=== PATIENT | female | born 1950 | race Caucasian/White ===

== ENCOUNTER 2023-09-20 11:47 | Emergency (ER) | payer MEDICARE, OTHER, SELFPAY ==
[2023-09-20 11:51] VITALS: BP 171/95
[2023-09-20 11:52] VITALS: BMI 22.7
[2023-09-20 11:57] VITALS: BP 171/95
[2023-09-20 12:00] VITALS: BP 182/85
--- NOTE | 2023-09-20 12:07 | ED.CVA ---
History of Present Illness
General
Chief Complaint: CVA/TIA Symptoms
Source: patient and ambulance crew
Exam Limitations: none
Time Seen by Provider: 09/20/23 11:50
Nursing documentation reviewed up to this point in time: agreed with
Onset of Stroke Symptoms
Onset of symptoms known: Yes
Date of onset of symptoms: 09/20/23
Time of onset of symptoms: 08:30
Travel History
Have you had any contact with someone who has COVID-19?: No
Do you have any symptoms of coronavirus? Fever > 100 degrees, chills, cough, shortness of breath, sore throat, loss of taste or smell, muscle aches, or headache?: No
History of Present Illness
History of Present Illness:
72-year-old female presents emerged part complaining of left-sided weakness, unsteadiness causing her to fall onto her back. Friend noted slurred speech hypertensive prior to arrival. She has a posterior brain stent.
Past History
Past History
ED Past Medical History: HTN and Other (Brain aneurysm)
ED Past Surgical History: Brain (Posterior stent)
Social History
Tobacco: Non-smoker
Alcohol: None
Drug: None
Review of Systems
Review of Systems
Allergies reviewed?: Yes
All Other Systems: Not applicable
Constitutional: Reports no symptoms
EENT: Reports no symptoms
Respiratory: Reports no symptoms
Cardiac: Reports no symptoms
ABD/GI: Reports no symptoms
: Reports no symptoms
Musculoskeletal: Reports no symptoms
Skin: Reports no symptoms
Neurological: Reports dizzy, weakness and other (Slurred speech)
Endocrine: Reports no symptoms
Hematologic/Lymphatic: Reports no symptoms
Psychiatric: Reports no symptoms
Phy Exam
Physical Exam
Physical Exam:
Physical Exam
General: no apparent distress, not acutely ill
Neck: supple. no meningeal signs. normal posterior pharynx
Heart: s1/s2 regular rate and rhythm, no murmur. equal radial
pulses.
HEENT: Pupils equal round reactive to light, EOMI
Lungs: no acute respiratory distress. clear bilaterally
Abdomen: normal bowel sounds. not tender. no CVAT
Neuro: alert and oriented. no focal neurological deficits cranial nerves II through XII intact
Skin: no rash
Psychiatric: well kept. interactive and cooperative
Extremities: no edema. no calf tenderness. negative homans. good distal pulses
Course
Orders/Labs/Results
Orders:
Orders
09/20/23 12:00
CT Head & Neck Angio W/wo IV Urgent
Comment:
Reason For Exam: slurred speech, hx posterior circ aneurysm stent
CT Head W/o Iv Contrast Urgent
Comment:
Reason For Exam: slurred speech
IV Insert/Care/Rem.- Treatment PRN
09/20/23 12:02
Electrocardiogram (*1) Urgent
Reason for Study: TIA/Stroke
EKG- Treatment ONCE
09/20/23 12:17
Complete Blood Count/With Diff Urgent
Comprehensive Metabolic Panel Urgent
09/20/23 13:40
NEUROLOGY CONSULT Urgent
Consulting Provider: Sohan Murcia
Was physician already notified: Yes
Reason for consult: slurred speech
09/20/23 14:07
Ondansetron Injectable [Zofran] 4 mg IV NOW ONE
09/20/23 14:14
Acetaminophen [Tylenol] 650 mg PO NOW STA
Lumbar Spine Complete, 4 View [CR Lumbar Spine Comp Min 4 Vw*] Urgent
Comment:
Reason For Exam: fall, low back pain
Abnormal Lab Results
09/20/23
12:17
MCV 76.0 L fL
(81.0-99.0)
MCH 24.6 L pg
(27.0-31.0)
MCHC 32.4 L g/dL
(33.0-37.0)
RDW 16.1 H %
(11.5-14.5)
Abs Immat Gran (auto) 0.1 H 10^3/uL
(0-0.05)
Absolute Lymphs (auto) 1.1 L 10^3/uL
(1.2-3.4)
Immature Gran % 1.4 H %
(0-0.5)
Neutrophils % 79.5 H %
(42.2-75.2)
Lymphocytes % 13.8 L %
(20.5-51.1)
09/20/23 12:17
09/20/23 12:17
Vital Signs
Initial and Last Documented VS:
Initial Vital Signs
Temp Pulse Resp BP Pulse Ox
97.8 F 71 14 171/95 98
09/20/23 11:57 09/20/23 11:57 09/20/23 11:57 09/20/23 11:57 09/20/23 11:57
Last Documented Vital Signs
Temp Pulse Resp BP Pulse Ox
97.8 F 71 14 171/95 98
09/20/23 11:57 09/20/23 11:57 09/20/23 11:57 09/20/23 11:57 09/20/23 12:22
MDM/Problems Addressed
Differential Diagnosis Includes:
TIA, CVA, intracranial hemorrhage, lumbar fracture
MDM/Problems Addressed:
72-year-old female with fall, no signs of intracranial hemorrhage. Patient is now asymptomatic. Possible TIA. Patient seen by Dr. Murcia, who recommended MRI. Patient declines MRI and will be discharged after lumbar spine x-ray.
Chronic conditions affecting care: Other (Prior stent in aneurysm)
*Radiology
Radiology exam reviewed: radiology read reviewed (CT head and CT angiography no acute findings)
*Pulse Oximetry
Patient hypoxic: no
*EKG
Interpreted by ED Provider?: Yes
EKG Intrepretation Date: 09/20/23
EKG Intrepretation Time: 12:09
Interpretation: normal
Comparison EKG: no comparison EKG present
Heart Rate: 63
Rate: normal
Rhythm: sinus
Otho: normal axis
Interval: normal interval
QRS Pattern: normal QRS
Ischemia: no ischemia
*Tooling Supervisor Interpretation
Rate: normal
Interpretation: normal
Heart Rate: 62
Rhythm: sinus
*Critical Care Note
Total Time (30-74mins, 75-104mins- exclusive of procedures): Not Applicable
Data Reviewed
Further Testing Considered But Not Given:
MRI brain, declined by patient
Patient Management
Discussion with other providers: Gastroenterology Manager (neurology Dr. Murcia)
Escalation/DeEscalation of care consider admission/obs:
admit considered, pt declines
ED Attending Note
-
Portions of this chart may have been created with voice recognition software.� Occasional wrong word or��sound alike� substitutions may have occurred due to the inherent limitations of voice recognition software.
Discharge Plan
Departure
Patient with high blood pressure during this ER visit?: Yes
Condition: Good
Discharge Problem:
TIA (transient ischemic attack)
Prescriptions:
No Action
loperamide [Imodium] 2 mg Capsule
2 mg PO Q6H PRN (Reason: loose stools)
valsartan 320 mg tablet
320 mg PO DAILY
aspirin 81 mg Tablet,Chewable
81 mg PO DAILY
metoprolol succinate 25 mg tablet extended release 24 hr
25 mg PO HS
cholecalciferol (vitamin D3) [Vitamin D3] 125 mcg (5,000 unit) Tablet
125 mcg PO DAILY
Referrals:
Eduardo Pathak DO [Family Provider] -
Interventions
Interventions:
*Risk Screen - Suicide Last Done: 09/20/23 12:03
*General Assessment Last Done: 09/20/23 12:03
*Neglect/Abuse Screening Last Done: 09/20/23 12:03
*ED COVID-19 Vaccine History Last Done: 09/20/23 11:57
ED- Pulmonary Assessment Last Done: 09/20/23 12:22
ED- Neurological Assessment Last Done: 09/20/23 12:22
ED- Cardiac Assessment Last Done: 09/20/23 12:22
[2023-09-20 12:34] LABS: % Basophils 0.7 % (0-2); % Eosinophils 0.3 % (0-6); % Immature Granulocytes 1.4 % (0-0.5); % Lymphocytes 13.8 % (20.5-51.1); % Monocytes 4.3 % (1.7-9.3); % Neutrophils 79.5 % (42.2-75.2); Absolute Basophils 0.1 10^3/uL (0-0.2); Absolute Immature Granulocytes 0.1 10^3/uL (0-0.05); Absolute Lymphocytes 1.1 10^3/uL (1.2-3.4); Absolute Monocytes 0.3 10^3/uL (0.1-0.6); Absolute Neutrophils 6.1 10^3/uL (1.4-6.5); Hematocrit 38.3 % (37.0-47.0); Hemoglobin 12.4 g/dL (12.0-16.0); Mean Corp Hgb Conc. 32.4 g/dL (33.0-37.0); Mean Corpuscular Hgb 24.6 pg (27.0-31.0); Mean Platelet Volume 9.7 fL (7.4-10.4); Nucleated Red Blood Cells % 0 %; Platelet Count 265 10^3/uL (130-400); Red Blood Cell Count 5.04 10^6/uL (4.20-5.40); Red Cell Dist. Width 16.1 % (11.5-14.5); White Blood Cell Count 7.7 10^3/uL (4.8-10.8)
[2023-09-20 12:44] LABS: ALT (SGPT) 23 U/L (0-35); AST (SGOT) 36 U/L (14-36); Albumin 4.4 g/dl (3.5-5.0); Alkaline Phosphatase 100 U/L (38-126); Blood Urea Nitrogen 17 mg/dl (7-17); Calcium 9.6 mg/dl (8.4-10.2); Carbon Dioxide 25 mmol/L (22-30); Chloride 107 mmol/L (98-107); Estimated Creatinine Clearance 50 ml/min; Glucose 98 mg/dl (70-99); Potassium 4.3 mmol/L (3.5-5.1); Sodium 137 mmol/L (135-145); Total Bilirubin 0.8 mg/dl (0.2-1.3); Total Protein 7.7 g/dl (6.3-8.2); eGFR > 60.00
--- NOTE | 2023-09-20 13:32 | CON.NEURO4 ---
Addendum entered and electronically signed by Sohan Murcia MD 09/20/23 15:15:
Studies reviewed.
I have personally examined the patient. I reviewed and agree with the WORKERS COMPENSATION CLAIMS ASSISTANT's Note.
My addenda:
Awake, alert, interactive. No acute distress.
Speech intact.
Follows 2-step requests w/o difficulty. No tremor.
Extra-ocular movements shows significantly reduced right-eye upgaze compared with contralateral side
Facial movements full and symmetric. Hearing intact to normal conversational volume.
Normal UE movements bilaterally.
Neck: full ROM.
Chest: no dyspnea
Heart: no JVD
Ext: (-) Clubbing, (-) Cyanosis, (-) Edema
IMPRESSIONS/RECOMMENDATIONS:
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
check MRI of brain for possible stroke
check CTA head and neck (done)
goal of mild HTN ~ 140/90 for next 24 hours then normotension
check blood work for metabolic etiologies
rehab evaluations
continue ASA, not clear patient would benefit from Clopidogrel addition
Provide Ondansetron for nausea
Lower back pain relief needed
D/W patient
Will continue to follow patient.
Original Note:
Documented by User: Jing Kothari NP 09/20/23 14:41
Consultation - Neurology 4
-
CONSULTING PHYSICIAN: Sohan Murcia MD
REFERRING PHYSICIAN: ER/Dr. Gaffney
DICTATED BY: SACHA Powell
DATE/TIME OF REQUEST: 09/20/23
DATE/TIME OF CONSULTATION: 09/20/23
Reason for Consultation: Left-sided weakness
History of Present Illness:
This is a 72-year-old right-handed female who has presented to the hospital with report of dizziness, ataxia, left-sided weakness, slurred speech, nausea, and a fall with resulting back pain. Patient reports that she woke up around 0700 this
morning and felt slightly dizzy. [place] and she went about her morning routine, but she felt like her left side was weak and she was off-balance walking. She ended up falling to the ground onto her buttocks, hitting
her back on the stove on the way down. A friend came over around 0930 to check on her and noted that her speech sounded slurred, and she called 911. Blood pressure for EMS was 211/87. On arrival in the ER, CT head and CTA neck were obtained and were
negative for any acute abnormalities. She reports that all of her symptoms except for nausea and lower back pain resolved after 2-3 hours. NIHSS is 0. She is not a candidate for TNK/IAT due to resolution of symptoms/NIHSS 0. She denies any
headache, vision changes, swallow difficulty, numbness, neck pain, chest pain, palpitations, and shortness of breath. She notes a one year history of bowel and urinary urgency following a colonoscopy. She rates her lower back pain an 8/10 and
reports that she never has back pain.
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 She had a workup including MRI brain at [facility] that was
unremarkable. 1-2 weeks after her symptoms developed she developed a severe headache. Evaluation by a neuro-certified vehicle fire investigator including CTA demonstrated a brain hemorrhage and ruptured R VARIOUS EXCEPTIONALITIES TEACHER aneurysm. She had the aneurysm coiled in 2007 and again in
2017 when it was noted to be larger in size. In 2021, she reports the aneurysm was noted to be leaking and she underwent flow diversion stenting. Repeat angiogram in 05/2023 was stable per the patient. She had been on DAPT with aspirin and Plavix,
Plavix was discontinued in May 2023 and she is currently only on aspirin 81mg daily. She is followed by Neurosurgery at [facility] currently. She has residual limited upgaze with EOMs in the right eye only since 2007. She reports that her blood
pressure is typically high when she is in the hospital but at home it usually runs around 140's/80's.
Past Medical History: HTN, Lyme disease, severe scoliosis, psoriasis, basal cell carcinoma
Surgical History: R VARIOUS EXCEPTIONALITIES TEACHER aneurysm coil x2, stenting x1
Family History: Reviewed and noncontributory.
Social History: Denies tobacco, alcohol, and illicit drug use.
Allergies: Povidone-iodine.
Home Medications: See below.
Review of Symptoms:
Patient denies any fever, headache, chest pain, shortness of breath.
�Per the HPI.�All systems are reviewed negative except above.
Physical Exam:
The patient is afebrile, abdomen is nondistended, breathing is unlabored, skin is warm and dry, no edema. Psoriasis noted on left hand.
NIH Stroke Scale:
I performed the NIH stroke scale on the patient on 09/20/23 at 1345. The patient scored 0 points on the NIH stroke scale assessment, which were assigned as follows: See below.
Neurologic Examination:
The patient is awake, alert and oriented x 3. Next holiday , most recent holiday . She is able to follow commands and answer questions appropriately. There is no aphasia or dysarthria. On cranial nerve assessment, right pupil is 3.5
mm, left pupil is 3mm round and reactive to light and accommodation. Visual parsons are full. Extraocular movements are full in the left eye, limited in right eye with upward gaze. +Micronystagmus beating to the right. Facial sensations are intact
and bilaterally symmetrical, there is no facial asymmetry. Hearing is intact bilaterally to normal conversation volume. Tongue palate and uvula are midline. Sternocleidomastoid strengths are full bilaterally. Motor strengths are 5/5 bilateral upper
and lower extremities on medical research [place] scale. There is no drift or involuntary movement noted. Deep tendon reflexes are 2+ right upper and lower and 1+ left upper and lower extremities and Babinski is absent bilaterally. Sensations of
touch, temperature and vibration are intact and bilaterally symmetrical. There was no extinction noted on double simultaneous stimulation. Coordination is intact by finger to nose bilaterally.
Lab Results: See below.
Neuro Imaging:
1. CT Head 09/20/23: No acute intracranial abnormality noted. Chronic senescent changes.
2. CTA head/neck 09/20/23: No significant vascular occlusion, aneurysm or dissection within the limitations as described.
Differentials for the patient's presentation include:
1. Small ischemic stroke or TIA possibly producing transient symptoms.
2. Hypertensive encephalopathy possible
3. CTA head/neck negative for any acute abnormalities.
Patient has the following risk factors for their symptoms: Aneurysm, HTN
IV Tenecteplase/IAT candidacy: She is not a candidate for TNK/IAT due to resolution of symptoms/NIHSS 0.
Recommendations:
-Provide ondansetron 8mg IV x1 now for nausea.
-Continue aspirin 81mg daily.
-Goal normotension.
-MRI brain noncontrast ordered/pending.
-Back pain workup per ER.
-NIHSS and neurological checks per unit guidelines.
-Provide patient with a stroke education packet.
-LDL goal <70. Lipid panel pending.
-Goal normoglycemia, hbA1c pending.
-Checking blood work for metabolic abnormalities.
-PT/OT/ST evaluations.
-DVT prophylaxis.
-Will follow pending results.
Discussed patient care with: Dr. Murcia, the patient
NIH Stroke Score
Subsequent NIH Scale
Date of Subsequent NIH Scale: 09/20/23
Time of Subsequent NIH Scale: 13:45
NIH Stroke Score
Level of Consciousness: 0 - Alert
LOC Questions: 0-Answers both correctly
LOC Commands: 0-Performs both correctly
Best Horizontal Gaze: 0-Normal
Visual Parsons: 0=Normal, no visual loss
Facial Palsy: 0=Normal, symmetrical
Motor - Right Arm: 0=No drift 10 seconds
Motor - Left Arm: 0=No drift 10 seconds
Motor - Right Le-No drift 5 seconds
Motor - Left Le-No drift 5 seconds
Limb Ataxia: 0-Absent
Sensation: 0-Normal
Best Language: 0-No aphasia
Dysarthria: 0-Normal
Extinction and Inattention: 0-No abnormality
Total Score:: 0
Vital Signs and Labs
-
Vital Signs and Labs:
Vital Signs
Temp Pulse Resp BP Pulse Ox
97.8 F 71 14 171/95 98
09/20/23 11:57 09/20/23 11:57 09/20/23 11:57 09/20/23 11:57 09/20/23 12:22
Lab Results
09/20/23 12:17
09/20/23 12:17
Sodium 137 mmol/L (135-145) 09/20/23 12:17
Potassium 4.3 mmol/L (3.5-5.1) 09/20/23 12:17
BUN 17 mg/dl (7-17) 09/20/23 12:17
Glucose 98 mg/dl (70-99) 09/20/23 12:17
Calcium 9.6 mg/dl (8.4-10.2) 09/20/23 12:17
Medications
-
Home Medications
Medication Instructions Recorded
aspirin 81 mg chewable tablet 81 mg PO DAILY Blood Clot 09/20/23
Prevention/Tx
cholecalciferol (vitamin D3) 125 125 mcg PO DAILY Supplement 09/20/23
mcg (5,000 unit) tablet (Vitamin
D3)
loperamide 2 mg capsule 2 mg PO Q6H PRN loose stools 09/20/23
metoprolol succinate 25 mg 25 mg PO HS Blood Pressure 09/20/23
tablet,extended release 24 hr
valsartan 320 mg tablet 320 mg PO DAILY Blood Pressure 09/20/23

Documented by User: Sohan Murcia MD 09/20/23 15:02
NIH Stroke Score
NIH Stroke Score
Total Score:: 0
[2023-09-20 13:56] VITALS: BP 177/92
[2023-09-20 14:30] VITALS: BP 187/91
[2023-09-20] MEDS: TYLENOL 650 MG PO (14:41)
[2023-09-20] MEDS: ZOFRAN 4 MG IV (14:42)
[2023-09-20 15:00] VITALS: BP 168/91
[2023-09-20 15:21] LABS: Erythrocyte Sed Rate 2 mm/hour (0-20)
[2023-09-20 16:05] LABS: Ferritin 28.5 ng/ml (11.1-264.0)
[2023-09-20 16:22] LABS: Total Cholesterol 216 mg/dl (50-199); Triglyceride 76 mg/dl (10-149); Very Low Density Lipoprotein 15 mg/dl (0-30)
[2023-09-20 16:32] LABS: HDL Cholesterol 120 mg/dl; LDL Cholesterol, Calculated 81 mg/dl
[2023-09-20 16:37] LABS: Folate 4.6 ng/ml (2.76-20); Vitamin B12 297 pg/ml (239-931)
[2023-09-21 09:25] LABS: Glycohemoglobin (HgbA1c) 5.8 % (4.0-5.6)
== END 2023-09-20 17:21 | disposition home or self-care (01) ==
LOC: EMR 11:47
PROVIDERS: CONSULT PHYSICIAN Psychiatry & Neurology Neurology; EMERGENCY PHYSICIAN Emergency Medicine; FAMILY PHYSICIAN Family Medicine
DX: G45.9 Transient cerebral ischemic attack, unspecified (principal); I10 Essential (primary) hypertension
CPT/HCPCS: 99284; 96374; 70450; 70496; 70498; 72110; 80053; 80061; 82607; 82728; 82746; 83036; 84443; 85025; 85652; 93005; Q9967

== ENCOUNTER 2023-09-20 22:56 | Inpatient (IN) | payer MEDICARE, OTHER, SELFPAY ==
[2023-09-20 19:22] LABS: Glucose - Point of Care 133 mg/dl (70-99)
--- NOTE | 2023-09-20 19:28 | ED.CVA ---
History of Present Illness
General
Chief Complaint: CVA/TIA Symptoms
Source: patient and ambulance crew
Time Seen by Provider: 09/20/23 19:24
Onset of Stroke Symptoms
Onset of symptoms known: Yes
Date of onset of symptoms: 09/20/23
Time pt last seen normal is known: Yes
Date last time pt seen normal: 09/20/23
Time last time pt seen normal: 18:15
Travel History
Have you had any contact with someone who has COVID-19?: No
Do you have any symptoms of coronavirus? Fever > 100 degrees, chills, cough, shortness of breath, sore throat, loss of taste or smell, muscle aches, or headache?: No
History of Present Illness
History of Present Illness:
72-year-old female presents to the emergency room via ambulance after developing left-sided weakness. Medics report the symptoms began at 6:15 PM. Patient was actually seen here in the emergency room earlier today after having TIA type symptoms.
His symptoms were evidently left-sided weakness, unsteadiness. She also had some slurred speech. Symptoms resolved. Patient was evaluated by neurology and evidently there was a plan for an MRI. Patient preferred to go home. Patient takes only
aspirin. She has a history of a ruptured right CURTAIN CUTTER HAND aneurysm. This was coiled in 2007 and then coiled again in 2018 per my review of the neurology consult from earlier today. In addition the aneurysm was noted to have 'leaking' in 2021 and she
underwent a flow diversion stent. Patient is able to follow commands. She can answer simple questions but does so slowly.
Past History
Past History
ED Past Medical History: HTN and Other (Brain aneurysm)
ED Past Surgical History: Brain (Posterior stent)
Social History
Tobacco: Non-smoker
Alcohol: None
Drug: None
Phy Exam
Physical Exam
Physical Exam:
General: Eyes closed but arousable. Oriented to person at date
Vitals: unremarkable
Head: Atraumatic
Eyes: Pupils equal, EOMI
Throat: Airway intact, no exudates
Neck: Trachea midline
Lungs: Clear and equal b/l
Heart: Regular rate, no murmurs
Abd: Soft, Nontender, No pulsatile mass
Neuro: Left facial droop, tongue deviates to the left, left arm spastic but unable to be moved voluntarily. Left leg has significant weakness. She is unable to lift it against gravity. When I help her lift her leg it falls to the bed and about 1
to 2 seconds. She sensory neglect on the left. Difficult to assess visual field as the patient has some baseline visual field deficit from previous aneurysmal affect. However does appear she has complete left hemianopsia.
Skin: Warm, dry, no rash
Extremities: pulses equal b/l, no edema
Scores
NIH Stroke Score
Level of Consciousness: 1 - Arousable
LOC Questions: 0-Answers both correctly
LOC Commands: 0-Performs both correctly
Best Horizontal Gaze: 0-Normal
Visual Parsons: 2=Full hemianopia
Facial Palsy: 2=Partial paralysis
Motor - Right Arm: 0=No drift 10 seconds
Motor - Left Arm: 2=Partial vs. gravity
Motor - Right Le-No drift 5 seconds
Motor - Left Le-Partial vs. gravity
Limb Ataxia: 0-Absent
Sensation: 1-Mild loss
Best Language: 0-No aphasia
Dysarthria: 2-Severe slurring
Extinction and Inattention: 1-Sensory inattention
Total Score:: 13
Course
Orders/Labs/Results
Orders:
Orders
09/20/23 19:19
Electrocardiogram (*1) Urgent
Reason for Study: Other
Other Reason for Exam: Possible Stroke
CT Head W/o Cont STROKE ALERT Urgent
Comment:
Reason For Exam: left side droop/weakness/ slurred speech
EKG- Treatment ONCE
09/20/23 19:21
Comprehensive Metabolic Panel Urgent
PTT Urgent
Prothrombin Time Urgent
09/20/23 19:22
Complete Blood Count/With Diff Urgent
Troponin I Urgent
09/20/23 19:27
CT Head/Neck Ang STROKE ALERT Urgent
Comment:
Reason For Exam: left sided weakness
09/20/23 20:54
Lorazepam [Ativan] 1 mg IV NOW STA
09/20/23 20:59
Levetiracetam Injectable [Keppra] 3,000 mg IV NOW STA
09/20/23 22:31
Admit/Transfer Patient As Directed
Co-Sign Provider:
Level of Care: Inpatient admission
Assign to:: IMU- Intermediate Care
Physician / Group: Prasanna
Diagnosis: CVA / Seziure
Reason for Hospitalization: CVA / Seizure
Expected length of stay greater than two midnights?: Yes
ELOS- Estimated Length of Stay in days: 3
I certify the patient meets the requirements for IP care: Yes
09/20/23 22:34
Code Status As Directed
Resuscitation Status: Full Code
Abnormal Lab Results
09/20/23 09/20/23
19:21 19:22
Hgb 11.6 L g/dL
(12.0-16.0)
Hct 34.9 L %
(37.0-47.0)
MCV 76.7 L fL
(81.0-99.0)
MCH 25.5 L pg
(27.0-31.0)
RDW 15.8 H %
(11.5-14.5)
Absolute Neuts (auto) 9.0 H 10^3/uL
(1.4-6.5)
Absolute Lymphs (auto) 1.1 L 10^3/uL
(1.2-3.4)
Neutrophils % 83.6 H %
(42.2-75.2)
Lymphocytes % 10.4 L %
(20.5-51.1)
APTT 20.9 L Sec
(23.4-35.0)
Sodium 132 L mmol/L
(135-145)
Glucose 153 H mg/dl
(70-99)
POC Glucose 133 H mg/dl
(70-99)
09/20/23 19:22
09/20/23 19:21
Vital Signs
Initial and Last Documented VS:
Initial Vital Signs
Temp
98.0 F
09/20/23 19:40
Last Documented Vital Signs
Temp
98.0 F
09/20/23 19:40
MDM/Problems Addressed
Differential Diagnosis Includes:
Ischemic CVA, hemorrhagic CVA, seizure, mass
MDM/Problems Addressed:
Patient presents with left-sided weakness. CT without contrast was read by radiology as no acute findings. CT angiogram did not show any large vessel occlusion. There was some limitation due to previous aneurysm coils and clips. However the
radiology report notes that this limits the P2 branch but otherwise vessels were open. The patient has had previous intracranial hemorrhage which is an absolute contraindication for thrombolytics. Therefore patient is not a candidate for
thrombolytics. She is not a candidate for IAT because her CTA does not show a large vessel occlusion. Because the patient has had significant neurosurgical intervention at the [facility] I did discuss this with their stroke team. They
requested I send a video of the CTA images which was accomplished. They compared these images to previous imaging performed there at [place] and found no difference. They agree that there is no intervention indicated at this time and the patient
would not benefit from transfer. In discussing the entire patient presentation did not stroke fellow (Dr. Riggins) raise the question of a seizure. This had occurred to me as well particular with the patient's left arm spasm. I recommended a
milligram of Ativan and loaded with Keppra. I discussed this with Dr. Amalia Arevalo who is on-call for neurology here at [place]. She thought this was a reasonable intervention.
Of note after the patient received a milligram of Ativan she was fairly somnolent. She maintaining her airway and does rouse to sternal rub but similar types stimulation. She did have some spontaneous movement of her left leg prior to her being
transferred up to the floor. Left arm is no longer contracted or spastic.
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
*Radiology
Radiology exam reviewed: radiology read reviewed
*Pulse Oximetry
Patient hypoxic: no
*EKG
Interpreted by ED Provider?: Yes
Interpretation: normal
Heart Rate: 67
Rate: normal
Rhythm: sinus
[place]: normal axis
Interval: normal interval
QRS Pattern: normal QRS
Ischemia: no ischemia
*Launch [employer] Interpretation
Rate: normal
Interpretation: normal
Heart Rate: 67
Rhythm: sinus
*Critical Care Note
Total Time (30-74mins, 75-104mins- exclusive of procedures): 40 min
comment:
Critical care statement: A total of 40 minutes of critical care time was provided for this patient. This includes management of unstable vital signs, evaluation of the patient at bedside, reviewing the patient's pertinent medical records, discussion
with consultants, review of old EKGs and review of pertinent medical records. This time with separate from time utilized to perform the aforementioned documented procedures
Patient Management
Discussion with other providers: Hospitalist
ED Attending Note
-
Portions of this chart may have been created with voice recognition software.� Occasional wrong word or��sound alike� substitutions may have occurred due to the inherent limitations of voice recognition software.
Discharge Plan
Departure
Patient Disposition: Admit
Date of Disposition: 09/20/23
Time of Disposition: 21:34
Admit to: IMU
Presentation/result/management discussed w/ accepting MD/DO: Hospitalist
Condition: Serious
Discharge Problem:
Acute CVA (cerebrovascular accident)
Interventions
Interventions:
*Risk Screen - Suicide Last Done: 09/20/23 19:31
*Neglect/Abuse Screening Last Done: 09/20/23 19:31
*Nursing Disposition Last Done: 09/21/23 02:05
ED- Neurological Assessment Last Done: 09/20/23 20:45
ED- Cardiac Assessment Last Done: 09/20/23 19:40
ED Swallowing Screen Last Done: 09/20/23 21:30
[2023-09-20 19:30] LABS: % Basophils 0.7 % (0-2); % Eosinophils 0.1 % (0-6); % Immature Granulocytes 0.4 % (0-0.5); % Lymphocytes 10.4 % (20.5-51.1); % Monocytes 4.8 % (1.7-9.3); % Neutrophils 83.6 % (42.2-75.2); Absolute Basophils 0.1 10^3/uL (0-0.2); Absolute Lymphocytes 1.1 10^3/uL (1.2-3.4); Absolute Monocytes 0.5 10^3/uL (0.1-0.6); Hematocrit 34.9 % (37.0-47.0); Hemoglobin 11.6 g/dL (12.0-16.0); Mean Corp Hgb Conc. 33.2 g/dL (33.0-37.0); Mean Corpuscular Hgb 25.5 pg (27.0-31.0); Mean Corpuscular Volume 76.7 fL (81.0-99.0); Mean Platelet Volume 10.3 fL (7.4-10.4); Nucleated Red Blood Cells % 0 %; Platelet Count 224 10^3/uL (130-400); Red Blood Cell Count 4.55 10^6/uL (4.20-5.40); Red Cell Dist. Width 15.8 % (11.5-14.5); White Blood Cell Count 10.7 10^3/uL (4.8-10.8)
[2023-09-20 19:38] VITALS: BP 136/71; BMI 22.7
[2023-09-20 19:39] VITALS: BP 137/63
[2023-09-20 19:45] LABS: ALT (SGPT) 21 U/L (0-35); AST (SGOT) 34 U/L (14-36); Albumin 3.9 g/dl (3.5-5.0); Alkaline Phosphatase 81 U/L (38-126); Blood Urea Nitrogen 16 mg/dl (7-17); Calcium 8.8 mg/dl (8.4-10.2); Carbon Dioxide 23 mmol/L (22-30); Chloride 105 mmol/L (98-107); Estimated Creatinine Clearance 50 ml/min; Glucose 153 mg/dl (70-99); Potassium 3.9 mmol/L (3.5-5.1); Sodium 132 mmol/L (135-145); Total Bilirubin 0.9 mg/dl (0.2-1.3); Total Protein 6.9 g/dl (6.3-8.2); eGFR > 60.00
[2023-09-20 19:54] LABS: Troponin I < 0.012 ng/ml
[2023-09-20 19:58] LABS: INR 1.07; PT 13.7 Sec (11.4-14.6)
[2023-09-20 19:59] LABS: APTT 20.9 Sec (23.4-35.0)
[2023-09-20 20:00] VITALS: BP 102/61
[2023-09-20 21:00] VITALS: BP 115/60
[2023-09-20] MEDS: KEPPRA 3000 MG IV (21:04)
[2023-09-20] MEDS: ATIVAN 1 MG IV (21:04)
[2023-09-20 22:00] VITALS: BP 97/70
--- NOTE | 2023-09-20 22:41 | HPS.HSE ---
Family Physician
-
Family Physician: Eduardo Pathak
Chief Complaint
-
Left Sided Weakness
History of Present Illness
Patient is a 72y F with PMH significant for R PICA aneurysm s/p coiling (x 2) who presents to ED complaining of left sided weakness and slurred speech. History is obtained entirely from review of documentation and discussion with ED staff.
Patient is unresponsive at the time of my examination. No family is listed as contact.
Patient presented to the ED this AM with complaint of dizziness, L sided weakness, slurred speech and ataxia. She had a fall at home with resultant back pain. A friend stopped by to see her today and noted that her speech was slurred. 911 was
called and patient was brought to the ED for evaluation. Her symptoms had resolved by the time of her evaluation. She underwent CT and CTA of the brain which showed no acute abnormalities. Patient was seen by Neurology and further work-up was
recommended. Patient apparently decided to go home instead.
She then developed recurrent L sided weakness and slurred speech this evening around 6:15 PM. EMS was again contacted and patient brought back to the ED for further evaluation. On arrival to the ED this evening, patient had persistent symptoms
with slurred / slow speech, L hemineglect, weakness and some described LUE contractures.
Imaging (CT and CTA) was repeated and no significant changes were noted from earlier today. ED physician discussed the case with local Neurology and Neurology at [facility] (where patient had received prior aneurysm coiling, etc).
There was concern that her symptoms represented seizures and - following recommendations from neurology - patient received 1mg Ativan and 3000mg Keppra IV in the ED.
At the time of my examination the patient is unresponsive. She exhibits mild phonation to painful stimuli but no other response to verbal or noxious stim.
No other history is obtainable at this time and exam is markedly limited.
Medical History
Past Medical History
Past Medical History: Reports Other
Additional Past Medical History:
Hypertension
Right RAILROAD PURCHASING AGENT Aneurysm
Scoliosis
Basal Cell Cancer
Past Surgical History: Reports Other
Additional Past Surgical History:
R RAILROAD PURCHASING AGENT Coiling x 2 (2007, 2017)
Diversionary Stent R RAILROAD PURCHASING AGENT Region (2021)
Social History
Tobacco: Non-smoker
Alcohol: None
Drug: None
Family History
Family History: Unable to Obtain
Allergies / Home Medications
Allergies reflects when Allergies were last updated in [employer].
Home Medications with original date entered in [employer]
Allergy/Medication List:
Allergies
Allergy/AdvReac Type Severity Reaction Status Date / Time
povidone-iodine Allergy Swelling Verified 09/20/23 12:02
[From Betadine]
Home Medications
aspirin 81 mg chewable tablet 81 mg PO DAILY Blood Clot Prevention/Tx 09/20/23
cholecalciferol (vitamin D3) 125 mcg (5,000 unit) tablet (Vitamin D3) 125 mcg PO DAILY Supplement 09/20/23
loperamide 2 mg capsule 2 mg PO Q6H PRN loose stools 09/20/23
metoprolol succinate 25 mg tablet,extended release 24 hr 25 mg PO HS Blood Pressure 09/20/23
valsartan 320 mg tablet 320 mg PO DAILY Blood Pressure 09/20/23
Review of Systems
-
Unable to obtain full review of systems at this time due to: Patient Non-verbal
Physical Exam
Vital Signs
Vital Signs
Temp
98.0 F
09/20/23 19:40
Physical Exam
General: Other (Unresponsive 72y F. Minimal grunt to painful stimuli. No other response elicited despite sternal rub, nail bed pressure, etc.)
HEENT: Other (Pupils are constricted but equal bilaterally.)
Respiratory: Clear; No Wheezes, Rales or Rhonchi
Cardiac: S1/S2 and Regular Rhythm; No Murmur
GI: Soft, Non Tender, Non Distended and Normal Bowel Sounds
Musculoskeletal: No Clubbing, No Cyanosis, No Edema and Other (Inter-digital muscle wasting x 4 extremities.)
Neuro: Other (Unresponsive. Difficult neurologic exam. No significant resistance x 4 extremities.)
Laboratory Results
-
09/20/23 19:22
09/20/23 19:21
Laboratory Results
PT 13.7 Sec (11.4-14.6) 09/20/23 19:21
INR 1.07 09/20/23 19:21
APTT 20.9 Sec (23.4-35.0) L 09/20/23 19:21
Total Bilirubin 0.9 mg/dl (0.2-1.3) 09/20/23 19:21
AST 34 U/L (14-36) 09/20/23 19:21
ALT 21 U/L (0-35) 09/20/23 19:21
Alkaline Phosphatase 81 U/L (38-126) 09/20/23 19:21
Troponin I < 0.012 ng/ml 09/20/23 19:22
Impression/Plan
-
A/P: Patient is a 72y F with PMH significant for RAILROAD PURCHASING AGENT aneurysm s/p coiling and stent who presents to ED complaining of L sided weakness, ataxia and slurred speech.
Left-Sided Weakness / Slurred Speech
- Admit for further evaluation and treatment.
- ? new CVA, seizure disorder, etc.
- Imaging - CT and CTA x 2 - essentially unremarkable, though limited by streak effect from known clips / stent.
- Patient received Ativan 1mg IV and Keppra 3000mg IV in the ED per Neuro recommendations.
- She is now unresponsive making following neurologic exam quite difficult.
- Current changes are very likely secondary to medications - repeating imaging again at this time not likely to be beneficial.
- Follow NIH / neuro exam as able.
- Neurology evaluation. EEG.
- ? additional imaging in the AM - defer to Neurology - ? if MRI is obtainable given clips / stent.
- Certainly there would be concern given known aneurysm / 'leaking' noted and subsequent stent placement in 2021, but repeated imaging has been unremarkable.
- Follow vital signs and would endeavor to avoid any BP extremes.
- Monitor glucose and avoid hypoglycemia or severe hyperglycemia.
Hypertension
- Currently hypotensive s/p sedating meds.
- Follow BP closely and avoid either extreme.
- Ordered home meds with holding parameters.
DVT Prophylaxis: SCDs
Code Status: Full
[2023-09-20 23:00] VITALS: BP 120/66
[2023-09-21] VITALS (7 sets, daily range): BP systolic 110–155; BP diastolic 63–123; BMI 22.3
[2023-09-21] MEDS: NSS 1000 IV (03:35)
--- NOTE | 2023-09-21 03:40 | PTCARENOTE ---
pt admitted from ED- pt is drowsy, lethargic, responsive to verbal and painful stimuli. NIH-14.. pt able to say her name and how old she is. knows the year. NIH done to best of ability d/t pt mental status. obvious left sided neglect noted. NSR on
the monitor. b/l scabs noted to MIMI suazo. bed alarm on for patient safety. IV fluids hung and infusing. care ongoing.
--- NOTE | 2023-09-21 04:25 | PTCARENOTE ---
this AM neuro check pt more responsive- able to lift both legs up without issues, obvious left arm weakness, able to lift up arm slowly. pt able to speak more telling this RN she is comfortable, still confused to place. reoriented. care ongoing.
[2023-09-21 04:42] LABS: Hematocrit 34.1 % (37.0-47.0); Hemoglobin 11.2 g/dL (12.0-16.0); Mean Corp Hgb Conc. 32.8 g/dL (33.0-37.0); Mean Corpuscular Hgb 24.3 pg (27.0-31.0); Mean Platelet Volume 9.5 fL (7.4-10.4); Platelet Count 219 10^3/uL (130-400); Red Blood Cell Count 4.61 10^6/uL (4.20-5.40); Red Cell Dist. Width 15.7 % (11.5-14.5); White Blood Cell Count 8.9 10^3/uL (4.8-10.8)
[2023-09-21 05:01] LABS: Blood Urea Nitrogen 16 mg/dl (7-17); Calcium 9.4 mg/dl (8.4-10.2); Carbon Dioxide 22 mmol/L (22-30); Chloride 106 mmol/L (98-107); Estimated Creatinine Clearance 59 ml/min; Glucose 98 mg/dl (70-99); HDL Cholesterol 104 mg/dl; Iron 133 ug/dl (37-170); LDL Cholesterol, Calculated 67 mg/dl; Potassium 3.5 mmol/L (3.5-5.1); Sodium 136 mmol/L (135-145); Total Cholesterol 189 mg/dl (50-199); Triglyceride 93 mg/dl (10-149); Very Low Density Lipoprotein 18 mg/dl (0-30); eGFR > 60.00
[2023-09-21 05:10] LABS: Percent Saturation 35 % (20-50); Total Iron Binding Capacity 378 ug/dl (265-497)
[2023-09-21 05:28] LABS: TSH Reflex To Free T4 1.05 uIU/ml (0.47-4.68)
[2023-09-21 05:32] LABS: Glucose - Point of Care 89 mg/dl (70-99)
--- NOTE | 2023-09-21 08:35 | PTOTSP ---
Speech Language Pathology
Pt seen for clinical bedside swallow evaluation. P.O. trials of ice chips, thin liquids, puree, and regular solids provided. Adequate mastication, bolus formation, and A-P transit with no oral residue. Throat clearing noted post regular solids.
No overt coughing. Also seen with med pass with meds 1 at a time with liquid with no overt difficulty.
Recommend:
(1) IDDSI Level 6 (Soft/bite-sized) and Thin liquids
(2) Aspiration precautions: set-up assist, intermittent supervision
(3) Meds whole with liquid
(4) FERRYBOAT DECKHAND to continue to follow pending transfer to [facility]
--- NOTE | 2023-09-21 08:39 | W.PN.HOSP.TC ---
Today's Communication/Plan
-
patient accepted in STAT transfer with accepting attending Dr. Sergei Lane
Assessment / Plan
Assessment / Plan
Assessment:
Left-Sided Weakness/Slurred Speech
- CT and CTA negative x 2 for acute abnormalities
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
- continue Keppra now
- follow Neuro recs, exam. Monitor airway
- with change in mental status, GCS 7, and abrupt worsening presentation over the course of yesterday, d/w Neuro ICU @ [facility] with Dr. Murcia
- patient accepted in STAT transfer with accepting attending Dr. Sergei Lane
Hx of Essential Hypertension
- Currently hypotensive s/p sedating meds.
- Follow BP closely and avoid either extreme.
- continue home meds with holding parameters.
DVT Prophylaxis:� SCDs
Code Status:� Full
Total Critical Care Time 45 minutes. I was immediately available to the patient and staff. I personally examined, reviewed labs, diagnostic images/reports, interpretations, treatment plans, discussed patient care with other providers and family
or caregivers (if patient is unable to make decisions), entered orders as appropriate and documented the medical record. Time also includes transferring patient.
Anticipated Discharge: Today
Subjective/Interval History
-
Date of Service: September 21, 2023
Admitted overnight with abrupt worsening of neurological status, concern for seizure
GCS 7 confirmed with Neurology
Stat transfer arranged with [facility] Neuro ICU Dr. Lane
Objective Data
-
Labs:
Laboratory Results
09/21/23
04:16
WBC 8.9
Hgb 11.2 L
Hct 34.1 L
Plt Count 219
Sodium 136
Potassium 3.5
Chloride 106
Carbon Dioxide 22
BUN 16
Creatinine 0.6
Glucose 98
Calcium 9.4
Vital Signs:
Vital Signs
Temp Pulse Resp BP Pulse Ox
97.8 F 63 12 142/66 99
09/21/23 02:11 09/21/23 06:00 09/21/23 06:00 09/21/23 06:00 09/21/23 06:00
Physical Exam
-
General: Other (minimally responsive)
HEENT: PERRLA
Respiratory: Clear to Auscultation; Negative Wheezes or Rales
Cardiac: Regular Rhythm and S1/S2
Genito-urinary: No Costovertebral Tender
Neuro: Awake
Psych: Calm
Data Reviewed
-
Critical Care Time (in minutes): 47
Labs: Labs Reviewed by me
[2023-09-21] MEDS: DIOVAN 320 MG PO (08:49)
[2023-09-21] MEDS: KEPPRA 500 MG IV (08:49)
[2023-09-21] MEDS: LOW STRENGTH ASPIRIN 81 MG PO (08:49)
--- NOTE | 2023-09-21 09:55 | CM ---
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
Notified by Dr Henao of stat transfer to [facility] Neuro ICU via chopper, for change in mental status, possible seizure vs something else related to her history of SALES RECORD CLERK aneurysm. Forms completed. Friend Nida who is listed as
contact was made aware.
Plan transfer to [facility] today by air ambulance.
--- NOTE | 2023-09-21 09:57 | PTCARENOTE ---
Received this am, NIHSS 7- see flowsheet. Speech eval completed with am meds. IVF infusing - 2 Right arm INTs patent. MD caballero -transfer initiated to [place]. Report given to Vishal FRIED at [facility] - flight crew also given report- pts friend HANNY present and
took all belongings.
--- NOTE | 2023-09-21 10:39 | CON.NEURO4 ---
Addendum entered and electronically signed by Sohan Murcia MD 09/21/23 11:47:
Studies reviewed.
I have personally examined the patient. I reviewed and agree with the HYDRO STATION SUPERVISOR's Note.
My addenda:
Maintains eyes closed, interactive. No acute distress.
Speech force and minimally produced.
Follows 1-step requests w/ mild difficulty. No tremor.
Extra-ocular movements grossly intact.
Facial movements full and symmetric. Hearing intact to normal conversational volume.
Normal UE movements bilaterally.
Neck: full ROM.
Chest: no dyspnea
Heart: no JVD
Ext: (-) Clubbing, (-) Cyanosis, (-) Edema
IMPRESSIONS/RECOMMENDATIONS:
Abrupt onset of change in mental status with left-sided weakness and prior right posterior communicating artery opening x 2 and flow diverter
Differential diagnosis includes large right middle cerebral artery acute ischemic stroke, aneurysm rupture (unlikely), vasospasm
Would consider transfer to center capable of performing cerebral angiogram
Check MRI of brain
Consider checking EEG
Total Critical Care Time=�40 minutes.
The neurological system is affected and the action required by me to prevent further deterioration or potential was control over the item listed first in the Impressions and Recommendations section of this note.
I was present and personally examined the patient.� I discussed patient care with other professional health care providers.
Will continue to follow as needed.
Original Note:
Documented by User: Jing Kothari NP 09/21/23 11:02
Consultation - Neurology 4
-
CONSULTING PHYSICIAN: Sohan Murcia MD
REFERRING PHYSICIAN: Hospitalists/Dr. Mims
DICTATED BY: SACHA Powell
DATE/TIME OF REQUEST: 09/21/23
DATE/TIME OF CONSULTATION: 09/21/23
Reason for Consultation: CVA
History of Present Illness:
This is a 72-year-old right-handed female who has presented to the hospital on 09/20/23 at 1900 with report of recurrence of left-sided weakness, ataxia, and slurred speech. Patient wss evaluated by our Neurology service earlier in the day and opted
to sign out AMA instead of staying for further workup.
From my previous evaluation on 09/20/23:
'This is a 72-year-old right-handed female who has presented to the hospital with report of dizziness, ataxia, left-sided weakness, slurred speech, nausea, and a fall with resulting back pain. Patient reports that she woke up around 0700 this
morning and felt slightly dizzy. [place] and she went about her morning routine, but she felt like her left side was weak and she was off-balance walking. She ended up falling to the ground onto her buttocks, hitting
her back on the stove on the way down. A friend came over around 0930 to check on her and noted that her speech sounded slurred, and she called 911. Blood pressure for EMS was 211/87. On arrival in the ER, CT head and CTA neck were obtained and were
negative for any acute abnormalities. She reports that all of her symptoms except for nausea and lower back pain resolved after 2-3 hours. NIHSS is 0.� She is not a candidate for TNK/IAT due to resolution of symptoms/NIHSS 0. She denies any
headache, vision changes, swallow difficulty, numbness, neck pain, chest pain, palpitations, and shortness of breath. She notes a one year history of bowel and urinary urgency following a colonoscopy. She rates her lower back pain an 8/10 and
reports that she never has back pain.
She has right SPORTING GOODS SALESPERSON aneurysm that was first discovered in 2007 at which time she reports having several weeks of photophobia, diplopia, right eye ptosis, anisocoria, and pain behind her right eye. She had a workup including MRI brain at [facility] that was
unremarkable. 1-2 weeks after her symptoms developed she developed a severe headache. Evaluation by a neuro-traffic agent including CTA demonstrated a brain hemorrhage and ruptured R SPORTING GOODS SALESPERSON aneurysm. She had the aneurysm coiled in 2007 and again in
2017 when it was noted to be larger in size. In 2021, she reports the aneurysm was noted to be leaking and she underwent flow diversion stenting. Repeat angiogram in 05/2023 was stable per the patient. She had been on DAPT with aspirin and Plavix,
Plavix was discontinued in May 2023 and she is currently only on aspirin 81mg daily. She is followed by Neurosurgery at [facility] currently. She has residual limited upgaze with EOMs in the right eye only since 2007. She reports that her blood
pressure is typically high when she is in the hospital but at home it usually runs around 140's/80's.
Later in the day on 09/20/23 around 1814, patient called 911 due to return of her initial presenting symptoms. CT head and CTA head/neck were repeated and were negative for any acute abnormalities but reading was limited due to artifact from her R
SPORTING GOODS SALESPERSON stent. NIHSS was 13. She was not a candidate for TNK/IAT due to history of cerebral aneurysm and no LVO. The ER spoke with the stroke Fellow at [facility] and there was concern for seizure given she has some left arm contracture. She was loaded with
Keppra and given Ativan 1mg, after which she became somnolent. Today, patient is lethargic, speech is slurred, there is left facial drooping, EOMs are restricted with left gaze, she has left-sided neglect, ataxia, and weakness. NIHSS is 13. Patient
denies any headache, dizziness, vision changes, numbness, nausea, chest pain, palpitations, and shortness of breath.
Past Medical History: � HTN, Lyme disease, severe scoliosis, psoriasis, basal cell carcinoma
Surgical History:� R SPORTING GOODS SALESPERSON aneurysm coil x2, stenting x1
Family History:� Reviewed and noncontributory.
Social History:� Denies tobacco, alcohol, and illicit drug use. 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
Allergies:� Povidone-iodine.
Home Medications:� See below.
Review of Symptoms:
Patient denies any fever, headache, chest pain, shortness of breath, GI or symptoms.
�Per the HPI.�All systems are reviewed negative except above.
Physical Exam:
The patient is afebrile, abdomen is nondistended, breathing is unlabored, skin is warm and dry, no edema.
NIH Stroke Scale:
I performed the NIH stroke scale on the patient on 09/21/23 at 0830. The patient scored 13 points on the NIH stroke scale assessment, which were assigned as follows: See below.
Neurologic Examination:
The patient is lethargic. Opens eyes to voice. Oriented to self and place, not time. She is able to follow commands and answer questions appropriately. There is no aphasia. There is mild dysarthria. On cranial nerve assessment, pupils are 2 mm
left, 2.5mm right, round and reactive to light and accommodation. Visual parsons are full. Extraocular movements are intact. Facial sensations are intact and bilaterally symmetrical, there is no facial asymmetry. Hearing is intact bilaterally to
normal conversation volume. Tongue palate and uvula are midline. Motor strengths are 5/5 RUE, 4/5 LUE, 5/5 RLE, 4/5 LLE on medical research [place] scale. There is drift in the left arm and left leg. No involuntary movement noted. Deep tendon
reflexes are 2+ bilateral upper and lower extremities and Babinski is absent bilaterally. There is extinction noted on double simultaneous stimulation on the left side. Coordination is not intact by finger to nose on the left or heel to becerra on the
left.
Lab Results: See below.
Neuro Imaging:
1. CTA head/neck 09/21/23: No CTA evidence for high-grade stenosis or occlusion of the arterial vasculature in the head or neck within the limitations of metallic streak artifact from aneurysm clips at the right skull base.
Differentials for the patient's presentation include:
1. Concern for brainstem ischemic infarct vs. R SPORTING GOODS SALESPERSON aneurysm stent malfunction given inability to completely visualize this area on CTA head/neck imaging due to artifact.
Patient has the following risk factors for their symptoms: R SPORTING GOODS SALESPERSON aneurysm requiring intervention x3, HTN
IV Tenecteplase/IAT candidacy: She is not a candidate for TNK/IAT due to history of cerebral aneurysm and no LVO.
Recommendations:
-Recommending urgent transfer to [facility] for Neurosurgical evaluation including arteriogram to rule-out R SPORTING GOODS SALESPERSON stent malfunction.
Discussed patient care with: Dr. Murcia, Dr. Henao, the patient.
NIH Stroke Score
Subsequent NIH Scale
Date of Subsequent NIH Scale: 09/21/23
Time of Subsequent NIH Scale: 08:30
NIH Stroke Score
Level of Consciousness: 1 - Arousable
LOC Questions: 1-Answers one correctly
LOC Commands: 0-Performs both correctly
Best Horizontal Gaze: 1-Partial gaze palsy
Visual Parsons: 0=Normal, no visual loss
Facial Palsy: 2=Partial paralysis
Motor - Right Arm: 0=No drift 10 seconds
Motor - Left Arm: 1=Drift < 10 seconds
Motor - Right Le-No drift 5 seconds
Motor - Left Le-Drift < 5 seconds
Limb Ataxia: 2-Present in two limbs
Sensation: 1-Mild loss
Best Language: 0-No aphasia
Dysarthria: 1-Mild slurring
Extinction and Inattention: 2-Total wily inattention
Total Score:: 13
Modified Karen (mRS) Score
Modified Karen Scale (mRS): Moderately severe disability. Unable to attend to bodily needs/walk.
Score: 4
Vital Signs and Labs
-
Vital Signs and Labs:
Vital Signs
Temp Pulse Resp BP Pulse Ox
97.6 F 65 18 143/82 95
09/21/23 07:30 09/21/23 09:37 09/21/23 09:37 09/21/23 09:37 09/21/23 09:37
Lab Results
09/21/23 04:16
09/21/23 04:16
PT 13.7 Sec (11.4-14.6) 09/20/23 19:21
INR 1.07 09/20/23 19:21
APTT 20.9 Sec (23.4-35.0) L 09/20/23 19:21
Sodium 136 mmol/L (135-145) 09/21/23 04:16
Potassium 3.5 mmol/L (3.5-5.1) 09/21/23 04:16
BUN 16 mg/dl (7-17) 09/21/23 04:16
Glucose 98 mg/dl (70-99) 09/21/23 04:16
Calcium 9.4 mg/dl (8.4-10.2) 09/21/23 04:16
LDL Cholesterol, Calc 67 mg/dl 09/21/23 04:16
Medications
-
Home Medications
Medication Instructions Recorded
aspirin 81 mg chewable tablet 81 mg PO DAILY Blood Clot 09/20/23
Prevention/Tx
cholecalciferol (vitamin D3) 125 125 mcg PO DAILY Supplement 09/20/23
mcg (5,000 unit) tablet (Vitamin
D3)
loperamide 2 mg capsule 2 mg PO Q6H PRN loose stools 09/20/23
metoprolol succinate 25 mg 25 mg PO HS Blood Pressure 09/20/23
tablet,extended release 24 hr
valsartan 320 mg tablet 320 mg PO DAILY Blood Pressure 09/20/23

Documented by User: Sohan Murcia MD 09/21/23 11:33
NIH Stroke Score
NIH Stroke Score
Total Score:: 13
Modified [place]ino (mRS) Score
Score: 4
== END 2023-09-21 09:52 | disposition short-term general hospital (02) | DRG 101 ==
LOC: IMU 22:56
PROVIDERS: ADMITTING PHYSICIAN Hospitalist; ATTENDING PHYSICIAN Internal Medicine; EMERGENCY PHYSICIAN Emergency Medicine; FAMILY PHYSICIAN Family Medicine; OTHER PHYSICIAN Psychiatry & Neurology Neurology
DX: R56.9 Unspecified convulsions (principal); R47.81 Slurred speech; I10 Essential (primary) hypertension; I95.9 Hypotension, unspecified; R53.1 Weakness; R29.713 NIHSS score 13; I67.1 Cerebral aneurysm, nonruptured
CPT/HCPCS: 70450; 70496; 70498; 72110; 80048; 80053; 80061; 82607; 82728; 82746; 82962; 83036; 83540; 83550; 84443; 84484; 85025; 85027; 85610; 85652; 85730; 92610; 93005; 96374; 96375; 99291; Q9967

== ENCOUNTER 2024-08-01 13:23 | Emergency (ER) | payer MEDICARE, OTHER, SELFPAY ==
[2024-08-01 13:35] VITALS: BP 137/70
--- NOTE | 2024-08-01 14:57 | ED.GENMED ---
History of Present Illness
<Ellen Licona PA-C - Last Filed: 08/01/24 18:04>
General
Chief Complaint: Cold/Flu/URI Symptoms
Source: patient
Exam Limitations: none
Time Seen by Provider: 08/01/24 14:44
Nursing documentation reviewed up to this point in time: agreed with
History of Present Illness
History of Present Illness:
Mrs. Nicholson is a 73-year-old female with past medical history of hypertension, brain aneurysm s/p coiling, Emergency Department today with shortness of breath and cough for the past few days. She went to her primary provider this morning for the
symptoms and was diagnosed with COVID-19 however they did not get a chest x-ray and she went to make sure she does not have pneumonia. Patient denies any chest pain, throat or trouble swallowing, fevers or chills. She does note that she has had
intermittent headaches with this as well and she is taking Tylenol with them. She denies any concern extremities, visual changes, neck pain, difficulties with ambulation.
Past History
<Ellen Licona PA-C - Last Filed: 08/01/24 18:04>
Past History
ED Past Medical History: HTN and Other (Brain aneurysm)
ED Past Surgical History: Brain (Posterior stent)
Social History
Tobacco: Non-smoker
Alcohol: None
Drug: None
Review of Systems
<Ellen Licona PA-C - Last Filed: 08/01/24 18:04>
Review of Systems
All Other Systems: ROS reviewed and negative except as documented in HPI and ROS
Phy Exam
<Ellen Licona PA-C - Last Filed: 08/01/24 18:04>
Physical Exam
Physical Exam:
General: Patient is well appearing and in no acute distress; non-toxic
Skin: Warm and dry, no rashes or lesions
Head: Normocephalic, atraumatic
Eyes: Sclera non-icteric. EOMs intact.
Cardiac: Regular rate and rhythm, no murmurs
Peripheral Vascular: No lower extremity swelling or edema
Pulm: Normal respiratory effort, no wheezes, rales, or rhonchi
Abdomen: No abdominal tenderness to palpation
Neuro: CN II-XII intact, no focal neurologic deficits.
Psychiatric: Appropriate mood and affect.
Course
<Ellen Licona PA-C - Last Filed: 08/01/24 18:04>
Orders/Labs/Results
Orders:
Orders
08/01/24 13:38
Chest [CR Chest - 2 Views ] Urgent
Comment:
Reason For Exam: cough
08/01/24 15:15
Acetaminophen [Tylenol] 500 mg PO NOW STA
08/01/24 15:34
Complete Blood Count/With Diff Urgent
Comprehensive Metabolic Panel Urgent
Abnormal Lab Results
08/01/24
15:34
Hct 36.6 L %
(37.0-47.0)
MCV 80.6 L fL
(81.0-99.0)
MCH 26.4 L pg
(27.0-31.0)
MCHC 32.8 L g/dL
(33.0-37.0)
Abs Immat Gran (auto) 0.1 H 10^3/uL
(0-0.05)
Absolute Neuts (auto) 7.8 H 10^3/uL
(1.4-6.5)
Absolute Lymphs (auto) 1.0 L 10^3/uL
(1.2-3.4)
Absolute Monos (auto) 1.0 H 10^3/uL
(0.1-0.6)
Neutrophils % 78.9 H %
(42.2-75.2)
Lymphocytes % 10.5 L %
(20.5-51.1)
Monocytes % 9.6 H %
(1.7-9.3)
Sodium 134 L mmol/L
(135-145)
08/01/24 15:34
08/01/24 15:34
Vital Signs
Initial and Last Documented VS:
Initial Vital Signs
Temp Pulse Resp BP Pulse Ox
98.5 F 89 16 137/70 98
08/01/24 13:35 08/01/24 13:35 08/01/24 13:35 08/01/24 13:35 08/01/24 13:35
Last Documented Vital Signs
Temp Pulse Resp BP Pulse Ox
98.5 F 86 16 130/76 95
08/01/24 13:35 08/01/24 17:36 08/01/24 17:36 08/01/24 17:36 08/01/24 17:36
<Olivia Pantoja, DO - Last Filed: 08/01/24 16:48>
Orders/Labs/Results
Orders:
Orders
08/01/24 13:38
Chest [CR Chest - 2 Views ] Urgent
Comment:
Reason For Exam: cough
08/01/24 15:15
Acetaminophen [Tylenol] 500 mg PO NOW STA
08/01/24 15:34
Complete Blood Count/With Diff Urgent
Comprehensive Metabolic Panel Urgent
Abnormal Lab Results
08/01/24
15:34
Hct 36.6 L %
(37.0-47.0)
MCV 80.6 L fL
(81.0-99.0)
MCH 26.4 L pg
(27.0-31.0)
MCHC 32.8 L g/dL
(33.0-37.0)
Abs Immat Gran (auto) 0.1 H 10^3/uL
(0-0.05)
Absolute Neuts (auto) 7.8 H 10^3/uL
(1.4-6.5)
Absolute Lymphs (auto) 1.0 L 10^3/uL
(1.2-3.4)
Absolute Monos (auto) 1.0 H 10^3/uL
(0.1-0.6)
Neutrophils % 78.9 H %
(42.2-75.2)
Lymphocytes % 10.5 L %
(20.5-51.1)
Monocytes % 9.6 H %
(1.7-9.3)
Sodium 134 L mmol/L
(135-145)
08/01/24 15:34
08/01/24 15:34
Vital Signs
Initial and Last Documented VS:
Initial Vital Signs
Temp Pulse Resp BP Pulse Ox
98.5 F 89 16 137/70 98
08/01/24 13:35 08/01/24 13:35 08/01/24 13:35 08/01/24 13:35 08/01/24 13:35
Last Documented Vital Signs
Temp Pulse Resp BP Pulse Ox
98.5 F 86 16 130/76 95
08/01/24 13:35 08/01/24 17:36 08/01/24 17:36 08/01/24 17:36 08/01/24 17:36
Carolannlt;Ellen Licona PA-C - Last Filed: 08/01/24 18:04>
MDM/Problems Addressed
Differential Diagnosis Includes:
Respiratory infection�COVID-19, influenza, pneumonia, bronchitis
MDM/Problems Addressed:
73-year-old female presents emergency department today with concerns of shortness breath and cough for the past few days. She was diagnosed with COVID-19 by her PCP but she decided to present to emergency room and to get his x-ray and to get lab
work. She was concerned that she may have pneumonia. She was advised family to call EMS for trip or in light of her age. On physical exam, she is well-appearing she is hypoxic she is tachycardic she is afebrile and her lungs are clear
bilaterally. She has no lower extremity swelling or edema. Her heart rate and rhythm with no murmur. Her chest x-ray is negative for pneumonia. Suspect current simply to COVID-19 infection. While patient does have a history of aneurysm that has
been paired, I do not believe patient's current headaches are present any bleed or any acute intracranial abnormality in light of patient's current action as well as associated no neurologic deficits or other associate symptoms. Return precautions
discussed patient stable for discharge
Chronic conditions affecting care:
htn, aneurysm
Acute Exacerbation and/or Progression of Chronic Illness:
n/a
<Ellen Licona PA-C - Last Filed: 08/01/24 18:04>
*Pulse Oximetry
Patient hypoxic: no
*Critical Care Note
Total Time (30-74mins, 75-104mins- exclusive of procedures): Not Applicable
Data Reviewed
Review of Other/Old Records Reveals: Records (Reviewed discharge arrangement 09/21/2023 patient seen for weakness and dizziness and was found to have a concern for possible complication to her [employer] aneurysm with possible clot patient was transferred
to [facility])
Source: patient and records
Prescriptions/Medications Considered But Not Given:
N/A
Further Testing Considered But Not Given:
N/A
<Ellen Licona PA-C - Last Filed: 08/01/24 18:04>
Patient Management
Escalation/DeEscalation of care consider admission/obs:
Admit not indicated, patient stable for discharge
ED Attending Note
<MIESHA Daniels Last Filed: 08/01/24 18:04>
-
Portions of this chart may have been created with voice recognition software.� Occasional wrong word or��sound alike� substitutions may have occurred due to the inherent limitations of voice recognition software.
<Olivia Pantoja, DO - Last Filed: 08/01/24 16:48>
ED Attending Note
Patient seen and examined by attending physician: Yes
I performed the substantive portion of visit, reviewed & personally made and approve the management plan that is documented in note by myself or ABDOUL.: Yes
I performed a history and physical exam of patient and discussed management with resident, I reviewed resident's note and agree with documented findings and plan of care.: Yes
ED Attending Note:
73-year-old female with history of high blood pressure presenting for cough for 5 days. Patient was seen outpatient, had COVID test that was positive. She called the medics because she felt that her cough was worsening. Denies any significant
dyspnea. Denies chest pain. Was initially having fevers have since resolved. Vital signs are normal.
On exam patient is resting comfortably, no acute respiratory distress, no oxygen dependence. Lungs are clear to auscultation on exam. Symptoms appear most consistent with viral syndrome and COVID-19. Screening laboratory analysis and chest x-ray
ordered. Plan for continued respiratory monitoring and ultimate outpatient supportive therapy with PCP follow-up
Discharge Plan
Departure
Patient Disposition: Home (Routine Discharge)
Date of Disposition: 08/01/24
Time of Disposition: 17:27
Patient with high blood pressure during this ER visit?: Yes
Condition: Good
Discharge Problem:
COVID-19
Instructions: COVID-19 in adults - Discharge instructions, BLOOD PRESSURE
Prescriptions:
No Action
loperamide [Imodium] 2 mg Capsule
2 mg PO Q6H PRN (Reason: loose stools)
valsartan 320 mg tablet
320 mg PO DAILY
aspirin 81 mg Tablet,Chewable
81 mg PO DAILY
metoprolol succinate 25 mg tablet extended release 24 hr
25 mg PO HS
cholecalciferol (vitamin D3) [Vitamin D3] 125 mcg (5,000 unit) Tablet
125 mcg PO DAILY
Referrals:
Eduardo Pathak, [Family Provider] -
Activity Restrictions/Additional Instructions:
Your x-ray does not show any evidence of pneumonia.
PLEASE RETURN TO THE EMERGENCY DEPARTMENT SHE EXPERIENCE SHORTNESS OF BREATH, CHEST PAIN, TROUBLE SWALLOWING, WHEEZING, INTRACTABLE NAUSEA OR VOMITING, PERSISTENT FEVERS, OR ANY OTHER SIGNS OR SYMPTOMS WORRISOME TO YOU.
Interventions
Interventions:
*Risk Screen - Suicide Last Done: 08/01/24 13:35
*General Assessment Last Done: 08/01/24 13:35
*Neglect/Abuse Screening Last Done: 08/01/24 13:35
ED- Fall Risk Assessment Last Done: 08/01/24 15:39
*ED COVID-19 Vaccine History Last Done: 08/01/24 13:35
*Nursing Disposition Last Done: 08/01/24 17:36
ED- Pulmonary Assessment Last Done: 08/01/24 15:39
Discharge Date and Time
Discharge Date/Time: 08/01/24 17:37
Print Language: BELARUSIAN
[2024-08-01] MEDS: TYLENOL 500 MG PO (15:34)
[2024-08-01 15:44] LABS: % Basophils 0.4 % (0-2); % Eosinophils 0.1 % (0-6); % Immature Granulocytes 0.5 % (0-0.5); % Lymphocytes 10.5 % (20.5-51.1); % Monocytes 9.6 % (1.7-9.3); % Neutrophils 78.9 % (42.2-75.2); Absolute Immature Granulocytes 0.1 10^3/uL (0-0.05); Absolute Neutrophils 7.8 10^3/uL (1.4-6.5); Hematocrit 36.6 % (37.0-47.0); Mean Corp Hgb Conc. 32.8 g/dL (33.0-37.0); Mean Corpuscular Hgb 26.4 pg (27.0-31.0); Mean Corpuscular Volume 80.6 fL (81.0-99.0); Mean Platelet Volume 9.8 fL (7.4-10.4); Nucleated Red Blood Cells % 0 %; Platelet Count 188 10^3/uL (130-400); Red Blood Cell Count 4.54 10^6/uL (4.20-5.40); Red Cell Dist. Width 13.9 % (11.5-14.5); White Blood Cell Count 9.9 10^3/uL (4.8-10.8)
[2024-08-01 16:36] LABS: ALT (SGPT) 12 U/L (0-35); AST (SGOT) 23 U/L (14-36); Albumin 4.2 g/dl (3.5-5.0); Alkaline Phosphatase 106 U/L (38-126); Blood Urea Nitrogen 11 mg/dl (7-17); Calcium 8.6 mg/dl (8.4-10.2); Carbon Dioxide 22 mmol/L (22-30); Chloride 101 mmol/L (98-107); Glucose 99 mg/dl (70-99); Potassium 3.5 mmol/L (3.5-5.1); Sodium 134 mmol/L (135-145); Total Bilirubin 0.6 mg/dl (0.2-1.3); eGFR > 60.00
[2024-08-01 17:36] VITALS: BP 130/76
== END 2024-08-01 17:37 | disposition home or self-care (01) ==
LOC: EMR 13:23
PROVIDERS: Physician Assistant; EMERGENCY PHYSICIAN Student in an Organized Health Care Education/Training Program; FAMILY PHYSICIAN Family Medicine
DX: U07.1 COVID-19 (principal); I10 Essential (primary) hypertension; Z86.79 Personal history of other diseases of the circulatory system
CPT/HCPCS: 99284; 71046; 80053; 85025